=== PATIENT | female | born 1975 | race Caucasian/White ===

== ENCOUNTER 2018-09-12 16:22 | Outpatient (REF) | payer OTHER, SELFPAY ==
[2018-09-12 22:11] LABS: HCT 39.3 % (36.0-46.0); HGB 13.6 g/dL (12.0-15.5); Mean Corp. HGB Concentration 34.6 g/dL (32.0-36.0); Mean Corpuscular Hemoglobin 31.3 pg (27.0-33.0); Mean Corpuscular Volume 90.6 fL (80-95); Mean Platelet Volume 9.6 fL (8.0-11.0); Platelet Count 278 x1000/uL (130-400); RBC 4.34 m/cumm (4.00-5.20); White Blood Cell Count 7.02 k/cumm (4.4-10.8)
[2018-09-12 23:06] LABS: ALT 21 U/L (12-78); AST 15 U/L (15-37); Albumin 4.2 g/dL (3.4-5.0); Alkaline Phosphatase 57 U/L (46-116); Anion Gap 12.5 mmol/L (3-11); BUN 13 mg/dL (7-18); Bilirubin, Total 0.4 mg/dL (0.2-1.0); CO2 25.5 mmol/L (21.0-32.0); CREATININE 1.08 mg/dL (0.55-1.02); Calcium 9.3 mg/dL (8.5-10.1); Chloride 102 mmol/L (98-107); Cholesterol 182 mg/dL (50-200); Estimated GFR 55.64 (mL/min/1.73m2); Glucose 79 mg/dL (70-100); HDL Cholesterol 87 mg/dL (40-60); LDL CHOLESTEROL 72 mg/dL (<100); Potassium 3.8 mmol/L (3.5-5.1); Sodium 140 mmol/L (136-145); TSH (W/Ref FT4) 0.36 uIU/mL (0.358-3.74); Triglyceride 140 mg/dL (30-150)
== END 2018-09-12 16:42 ==
LOC: NCHCN 16:22
PROVIDERS: PCP Family Medicine; Visit Provider Family Medicine
DX: F41.1 Generalized anxiety disorder (principal)
CPT/HCPCS: 80053; 80061; 83721; 85027; 84443

== ENCOUNTER 2018-10-24 17:11 | Outpatient (REF) | payer OTHER, SELFPAY ==
--- NOTE | 2018-10-24 16:00 | PAPFT_PTH ---
PATIENT: Jon Montes LOC: [facility] U#:[id number] AGE/SX: 43/F ROOM: RE10/24/[address]: Farida Falk : 1975 BED: DIS: 10/24/2018 SPEC #: [id number] RECD: 10/25/18 13:01 STATUS: OTONIEL RENEE #: [id number] CASSIUS: 10/24/18 16:[address]: Farida Falk DEPT: [facility] Cytology RECD BY: Louisa Little Tissues: 1 - CX/ENDOCX FOR PAP SMEARS Procedures: PAP THIN PREP/[facility] Screening HPV DNA PROBE Comments: [id number]
== END 2018-10-24 17:31 ==
LOC: NCHCN 17:11
PROVIDERS: PCP Family Medicine; Visit Provider Family Medicine
DX: Z12.4 Encounter for screening for malignant neoplasm of cervix (principal); Z11.51 Encounter for screening for human papillomavirus (HPV); Z00.00 Encounter for general adult medical examination without abnormal findings; Z01.419 Encounter for gynecological examination (general) (routine) without abnormal findings
CPT/HCPCS: 88142; 87624

== ENCOUNTER 2019-03-06 13:44 | Outpatient (REF) | payer OTHER, SELFPAY ==
[2019-03-06 13:49] LABS: ESR 10 mm/hr (0-20)
[2019-03-07 10:32] LABS: Rheumatoid Factor 8 IU/mL (<12.5)
[2019-03-07 14:57] LABS: ANA Interpretation Negative (NEGAT)
== END 2019-03-06 14:04 ==
LOC: LBN 13:44
PROVIDERS: PCP Family Medicine; Visit Provider Family Medicine
DX: R53.83 Other fatigue (principal)
CPT/HCPCS: 85652; 86038; 86431

== ENCOUNTER 2020-03-11 14:51 | Outpatient (REF) | payer OTHER, SELFPAY ==
[2020-03-11 21:46] LABS: HCT 40.7 % (36.0-46.0); HGB 13.6 g/dL (11.2-15.7); MCH 31.9 pg (27.0-33.0); MCHC 33.4 % (32.0-36.0); MCV 95.3 fL (80-95); MPV 9.6 fL (8.0-11.0); Platelet Count 292 10^3/uL (130-400); RBC 4.27 10^6/uL (3.93-5.22); RDW 12.4 % (11.7-14.6); RDW-SD 43.1 fL; WBC 8.03 10^3/uL (4.4-10.8)
[2020-03-11 22:09] LABS: FREE T4 1.22 ng/dL (0.76-1.46); TSH 0.52 uIU/mL (0.36-3.74)
[2020-03-12 18:19] LABS: T3, Total 94 ng/dL (97-169)
== END 2020-03-11 15:11 ==
LOC: NCHCN 14:51
PROVIDERS: PCP Family Medicine; Visit Provider Family Medicine
DX: R53.83 Other fatigue (principal); E03.9 Hypothyroidism, unspecified
CPT/HCPCS: 85027; 84439; 84443; 84480

== ENCOUNTER 2020-04-10 13:36 | Outpatient (REF) | payer OTHER, SELFPAY ==
[2020-04-10 21:30] LABS: FREE T4 1.09 ng/dL (0.76-1.46); TSH 0.81 uIU/mL (0.36-3.74)
[2020-04-12 17:36] LABS: T3,Free 2.5 pg/mL (2.8-5.3)
== END 2020-04-10 13:56 ==
LOC: NCHCN 13:36
PROVIDERS: PCP Family Medicine; Visit Provider Family Medicine
DX: E03.9 Hypothyroidism, unspecified (principal)
CPT/HCPCS: 84439; 84443; 84481

== ENCOUNTER 2020-05-25 13:24 | Outpatient (REF) | payer OTHER, SELFPAY ==
[2020-05-25 21:23] LABS: T4 8.3 ug/mL (4.7-13.3); TSH 0.16 uIU/mL (0.36-3.74)
[2020-05-26 17:15] LABS: T3, Total 119 ng/dL (97-169)
== END 2020-05-25 13:44 ==
LOC: NCHCN 13:24
PROVIDERS: PCP Family Medicine; Visit Provider Family Medicine
DX: E03.9 Hypothyroidism, unspecified (principal)
CPT/HCPCS: 84436; 84443; 84480

== ENCOUNTER 2021-02-24 16:30 | Outpatient (REF) | payer OTHER, SELFPAY ==
[2021-02-24 21:56] LABS: HCT 41.9 % (36.0-46.0); HGB 14.2 g/dL (11.2-15.7); MCH 31.6 pg (27.0-33.0); MCHC 33.9 % (32.0-36.0); MCV 93.1 fL (80-95); MPV 9.4 fL (8.0-11.0); Platelet Count 274 10^3/uL (130-400); RDW 11.8 % (11.7-14.6); RDW-SD 40.2 fL; WBC 5.41 10^3/uL (4.4-10.8)
[2021-02-24 22:18] LABS: ALT 29 U/L (14-59); AST 26 U/L (15-37); Albumin 4.3 g/dL (3.4-5.0); Alkaline Phosphatase 74 U/L (46-116); Anion Gap 8.6 mmol/L (3-11); BUN 9 mg/dL (7-18); Bilirubin, Total 0.4 mg/dL (0.2-1.0); CO2 27.4 mmol/L (21.0-32.0); CREATININE 0.9 mg/dL (0.55-1.02); Calcium 9.6 mg/dL (8.5-10.1); Chloride 105 mmol/L (98-107); FREE T4 1.02 ng/dL (0.76-1.46); Glucose 94 mg/dL (74-106); Potassium 4.7 mmol/L (3.5-5.1); Sodium 141 mmol/L (136-145); TSH 0.51 uIU/mL (0.36-3.74); Total Protein 7.2 g/dL (6.4-8.2)
[2021-02-24 22:30] LABS: Calculated LDL 95 mg/dL (<100); Cholesterol 211 mg/dL (<200); HDL Cholesterol 99 mg/dL (40-60); Triglyceride 87 mg/dL (<150)
[2021-02-25 17:11] LABS: T3,Free 4.1 pg/mL (2.8-5.3)
== END 2021-02-24 16:31 | disposition home or self-care (01) ==
LOC: NCHCN 16:30
PROVIDERS: PCP Family Medicine; Visit Provider Family Medicine
DX: E03.9 Hypothyroidism, unspecified (principal); R53.83 Other fatigue
CPT/HCPCS: 80053; 80061; 85027; 84439; 84443; 84481

== ENCOUNTER 2021-12-06 14:40 | Outpatient (REF) | payer OTHER, SELFPAY ==
[2021-12-06 19:22] LABS: HCT 39.9 % (36.0-46.0); HGB 13.8 g/dL (11.2-15.7); MCH 31.9 pg (27.0-33.0); MCHC 34.6 % (32.0-36.0); MCV 92 fL (80-95); MPV 9.2 fL (8.0-11.0); Platelet Count 296 10^3/uL (130-400); RBC 4.32 10^6/uL (3.93-5.22); RDW 11.8 % (11.7-14.6); RDW-SD 39.9 fL; WBC 7.57 10^3/uL (4.4-10.8)
[2021-12-06 19:45] LABS: ALT 34 U/L (14-59); AST 29 U/L (15-37); Albumin 4.1 g/dL (3.4-5.0); Alkaline Phosphatase 87 U/L (46-116); Anion Gap 11.7 mmol/L (3-11); BUN 13 mg/dL (7-18); Bilirubin, Total 0.5 mg/dL (0.2-1.0); CO2 24.3 mmol/L (21.0-32.0); CREATININE 0.9 mg/dL (0.55-1.02); Chloride 101 mmol/L (98-107); Glucose 95 mg/dL (74-106); Potassium 4.1 mmol/L (3.5-5.1); Sodium 137 mmol/L (136-145); T4 9.7 ug/mL (4.7-13.3); TSH 0.19 uIU/mL (0.36-3.74); Total Protein 7.1 g/dL (6.4-8.2)
[2021-12-07 17:47] LABS: T3, Total 158 ng/dL (97-169)
[2021-12-07 18:22] LABS: Estradiol 231 pg/mL (See Note); Progesterone 0.5 ng/mL (See Table)
[2021-12-07 18:41] LABS: FSH 23.1 mIU/mL (See Note); LH 45.6 mIU/mL (See Note)
== END 2021-12-06 14:41 | disposition home or self-care (01) ==
LOC: NCHCN 14:40
PROVIDERS: PCP Family Medicine; Visit Provider Family Medicine
DX: R53.83 Other fatigue (principal); N95.1 Menopausal and female climacteric states
CPT/HCPCS: 80053; 85027; 82670; 83001; 83002; 84144; 84436; 84443; 84480

== ENCOUNTER 2023-03-20 11:33 | Outpatient (REF) | payer OTHER, SELFPAY ==
[2023-03-20 16:35] LABS: ALT 27 U/L (14-59); AST 21 U/L (15-37); Albumin 4.1 g/dL (3.4-5.0); Alkaline Phosphatase 77 U/L (46-116); Anion Gap 11.1 mmol/L (3-11); BUN 11 mg/dL (7-18); Bilirubin, Total 0.3 mg/dL (0.2-1.0); CO2 26.9 mmol/L (21.0-32.0); Calcium 9.5 mg/dL (8.5-10.1); Calculated LDL 112 mg/dL (<100); Chloride 102 mmol/L (98-107); Cholesterol 218 mg/dL (<200); Estimated GFR 70.36 (mL/min/1.73m2); Glucose 110 mg/dL (74-106); HDL Cholesterol 83 mg/dL (40-60); Potassium 4.3 mmol/L (3.5-5.1); Sodium 140 mmol/L (136-145); TSH 0.26 uIU/mL (0.36-3.74); Total Protein 7.2 g/dL (6.4-8.2); Triglyceride 115 mg/dL (<150)
[2023-03-20 18:07] LABS: FREE T4 0.85 ng/dL (0.76-1.46)
== END 2023-03-20 11:34 | disposition home or self-care (01) ==
LOC: NCHCN 11:33
PROVIDERS: PCP Family Medicine; Visit Provider Family Medicine
DX: E03.9 Hypothyroidism, unspecified (principal); R53.83 Other fatigue; R63.5 Abnormal weight gain; F41.1 Generalized anxiety disorder; Z00.00 Encounter for general adult medical examination without abnormal findings
CPT/HCPCS: 80053; 80061; 84439; 84443